=== PATIENT | male | born 1985 | race Caucasian/White ===

== ENCOUNTER 2018-10-16 05:32 | Emergency (ER) | payer BC ==
[~2018-10-16] VITALS: Ht 182.9 cm; Wt 77.4 kg
[2018-10-16] MEDS ORDERED: SODIUM CHLORIDE FLUSH 10ML SYR IVF ONE (06:00)
[2018-10-16] MEDS ORDERED: OXYcodone/APAP 5/325MG TABLET PO ONE (06:00)
[2018-10-16] MEDS ORDERED: ONDANSETRON ODT 4 MG PO ONE (06:00)
[2018-10-16] MEDS ORDERED: AMPICILLIN/SULBACTAM 3 GM in SODIUM CHLORIDE 0.9% 100 ML IVPB ONE (06:00)
[2018-10-16] MEDS ORDERED: DIPH,PERTUSS(ACELL),TET VAC/PF 0.5 ML IM-VACC ONE ×2 (06:00→06:06)
[2018-10-16] MEDS ORDERED: ONDANSETRON ODT 4 MG ONE (06:06)
[2018-10-16] MEDS ORDERED: OXYcodone/APAP 5/325MG TABLET ONE (06:07)
[2018-10-16] MEDS ORDERED: BACITRACIN ZINC OINT 500U/GM, 0.9 GM ONE ×2 (06:10→07:06)
[2018-10-16 06:12] LABS: BASOPHILS # (AUTO) 0.02 x10^3/uL (0-0.1); BASOPHILS % (AUTO) 0 % (0-1); EOSINOPHILS # (AUTO) 0.09 x10^3/uL (0-0.4); EOSINOPHILS % (AUTO) 1 % (1-7); LYMPHOCYTES # (AUTO) 1.46 x10^3/uL (1-3.4); LYMPHOCYTES % (AUTO) 17 % (22-44); MD NO; MEAN CORPUSCULAR HEMOGLOBIN 30.7 pg (27.5-34.5); MEAN CORPUSCULAR VOLUME 90.3 fL (81-97); MEAN PLATELET VOLUME 7.7 fL (7.4-10.4); MONOCYTES % (AUTO) 8 % (2-9); NEUTROPHILS % (AUTO) 74 % (42-75); PLATELET COUNT 267 x10^3/uL (130-400); RED BLOOD COUNT 5.64 x10^6/uL (4.38-5.82); RED CELL DISTRIBUTION WIDTH 12.2 % (9.4-14.8)
[2018-10-16 07:09] VITALS: BP 126/97
== END 2018-10-16 07:15 | disposition home or self-care (01) ==
LOC: ED 07:00
DX: S61.411A Laceration without foreign body of right hand, initial encounter (principal); L03.113 Cellulitis of right upper limb; X58.XXXA Exposure to other specified factors, initial encounter; Y93.89 Activity, other specified; Y92.009 Unspecified place in unspecified non-institutional (private) residence as the place of occurrence of the external cause; Y99.8 Other external cause status
CPT/HCPCS: 29125; 36415; 73130; 85025; 90471; 90715; 96365; 99285; J0295; Q0162

== ENCOUNTER 2018-12-01 14:09 | Emergency (ER) | payer BC ==
[~2018-12-01] VITALS: Ht 180.3 cm; Wt 80.0 kg
[2018-12-01 14:12] VITALS: BP 141/89
[2018-12-01] MEDS ORDERED: AZITHROMYCIN 250 MG TABLET PO STA (14:15)
[2018-12-01] MEDS ORDERED: CEFTRIAXONE 250 MG IM ONE (14:30)
[2018-12-01] MEDS ORDERED: AZITHROMYCIN 500 MG TABLET ONE (14:37)
[2018-12-01] MEDS ORDERED: CEFTRIAXONE 250 MG ONE (14:38)
[2018-12-01 15:05] LABS: MICROSCOPIC AUTO
[2018-12-01 15:19] LABS: CULTURE INDICATED? YES
== END 2018-12-01 15:48 | disposition home or self-care (01) ==
LOC: ED 15:40
DX: N30.00 Acute cystitis without hematuria (principal); N34.2 Other urethritis; F17.200 Nicotine dependence, unspecified, uncomplicated
CPT/HCPCS: 81001; 87077; 87086; 87491; 87591; 96372; 99283; J0696